=== PATIENT | male | born 1960 | race Caucasian/White ===

== ENCOUNTER 2019-12-19 07:26 | Day surgery (SDC) | payer BC ==
[2019-12-17 15:36] VITALS: BMI 28.5
[~2019-12-19 07:26] MED LIST: LACTATED RINGERS 1,000 ML IV SCH
--- NOTE | 2019-12-19 07:42 | P.GSHP ---
History of Present Illness H&P Date: 12/19/19 CHIEF COMPLAINT: Colon screen HISTORY OF PRESENT ILLNESS: The patient is a 58-year-old male who presents for colon screen. Lower endoscopy was offered for further evaluation and management. PAST MEDICAL HISTORY: Please see list. PAST SURGICAL HISTORY: Please see list. MEDICATIONS: Please see list. ALLERGIES: Please see list. SOCIAL HISTORY: No illicit drug use FAMILY HISTORY: No reports of Crohn disease or ulcerative colitis. REVIEW OF ORGAN SYSTEMS: CONSTITUTIONAL: No reports of fevers or chills. PHYSICAL EXAM: VITAL SIGNS: Stable GENERAL: Well-developed pleasant in no acute distress. HEENT: No scleral icterus. Extraocular movements grossly intact. Moist buccal mucosa. NECK: Supple without lymphadenopathy. CHEST: Unlabored respirations. Equal bilateral excursions. CARDIOVASCULAR: Regular rate and rhythm. Distal 2+ pulses. ABDOMEN: Soft, nontender, nondistended. MUSCULOSKELETAL: No clubbing, cyanosis, or edema. ASSESSMENT: 1. Colon screen. PLAN: 1. Recommend proceeding with a lower endoscopy Past Medical History Past Medical History: No Reported History History of Any Multi-Drug Resistant Organisms: None Reported Past Surgical History: Hernia Repair Past Anesthesia/Blood Transfusion Reactions: No Reported Reaction Smoking Status: Light tobacco smoker - Past Family History Mother Family Medical History: No Reported History Medications and Allergies Home Medications Medication Instructions Recorded Confirmed Type Hugakac-Swmy-Gkrw [id number] 1 each PO Q6HR PRN 12/17/19 12/17/19 History [Excedrin] No Known Home Medications 12/17/19 12/17/19 History Allergies Allergy/AdvReac Type Severity Reaction Status Date / Time No Known Allergies Allergy Verified 12/17/19 15:29
[2019-12-19] MEDS ORDERED: LIDOCAINE 1% (10MG/ML) FOR IV START INTRADERMA ONE (08:00)
[2019-12-19] MEDS ORDERED: PROPOFOL 10 MG/ML 20 ML VIAL IV ONE (09:22)
--- NOTE | 2019-12-19 09:51 | P.PCN ---
Date of Procedure: 12/19/19 Description of Procedure: PREOPERATIVE DIAGNOSIS: Colonoscopy screening POSTOPERATIVE DIAGNOSIS: Colonoscopy screening Transverse colon polyp Descending colon polyp Internal hemorrhoids, grade 3 OPERATION: Colonoscopy to the cecum Colonoscopy with cold forceps biopsies SURGEON: Blanca Zamora MD. ANESTHESIA: MAC. INDICATIONS: The patient is an 58-year-old male who presents for his first colonoscopy screening. Benefits and risks were described and informed consent was obtained. DESCRIPTION OF PROCEDURE: The patient had undergone Suprep. He had been brought into the operating room and laid in the left lateral decubitus position. After adequate intravenous sedation, the rectum was examined with 2% lidocaine jelly. The prostate was unremarkable. External hemorrhoids were encountered. The rectal tone was within normal limits. No lesions were palpated in the rectal vault. An Olympus colono scope was advanced until the cecum were viewed. The prep was excellent. No large sigmoid diverticulosis was encountered. Small colonic polyps were removed with cold forceps. No evidence of focal colitis was found. Retroflexion of the scope demonstrated grade 3 internal hemorrhoids without active bleeding or inflammation. The colon was desufflated. The patient had tolerated the procedure well. Withdrawal time was over 6 minutes. FINDINGS: Aronchick preparation quality scale 1 (1-5) Internal hemorrhoids, grade 3 External hemorrhoids, grade 3. No arteriovenous malformations. No large sigmoid diverticulosis Removal of 2: - Cold forceps biopsy at the descending colon, 4 mm polyp. - Cold forceps biopsy at mid transverse colon, 3 mm polyp. No focal colitis. RECOMMENDATIONS: Repeat colonoscopy in 2024 Plan - Discharge Summary New Discharge Prescriptions: Continue Rhrxyxn-Isse-Ccjn [id number] [Excedrin] 1 each PO Q6HR PRN PRN Reason: Pain No Action No Known Home Medications Discharge Medication List Qjnfjht-Vdij-Uder [id number] [Excedrin] 1 each PO Q6HR PRN 12/17/19 [History] No Known Home Medications 12/17/19 [History] Follow up Appointment(s)/Referral(s): Blanca Zamora MD [STAFF PHYSICIAN] - As Needed Patient Instructions/Handouts: Colorectal Polyps (DC), Hemorrhoids (DC) Activity/Diet/Wound Care/Special Instructions: Repeat colonoscopy in 5 years2024 Discharge Disposition: HOME SELF-CARE
[2019-12-20 09:56] VITALS: BP 111/74; PULSE 61; RESP 16; TEMP 97.7
== END 2019-12-19 10:16 | disposition home or self-care (01) ==
LOC: ORWHC2ENDO 07:26
PROVIDERS: ATTEND Surgery Plastic and Reconstructive Surgery
DX: Z12.11 Encounter for screening for malignant neoplasm of colon (principal); D12.3 Benign neoplasm of transverse colon; K63.5 Polyp of colon; K64.2 Third degree hemorrhoids; K64.4 Residual hemorrhoidal skin tags; F17.210 Nicotine dependence, cigarettes, uncomplicated; Z98.890 Other specified postprocedural states
CPT/HCPCS: 88305; 45380; J2704

== ENCOUNTER → 2020-04-08 | Outpatient (CLI) | payer BC | END | disposition home or self-care (01) | LOC: LABWHC1 10:19 | PROVIDERS: ATTEND Family Medicine | DX: Z03.89 Encounter for observation for other suspected diseases and conditions ruled out (principal) | CPT/HCPCS: U0003; C9803 ==